=== PATIENT | male | born 1990 | race Two or more races ===

== ENCOUNTER 2024-12-29 19:33 | Emergency (ER) | payer SELFPAY ==
[2024-12-29 19:36] VITALS: BP 146/87; PULSE 88; RESP 18; TEMP 36.8; O2SAT 97
--- NOTE | 2024-12-29 20:13 | EDNOTE_ITS ---
ED General RME/HPI General Chief complaint: Medical Clearance Stated complaint: MEDICAL CLEARANCE Time Seen by Provider: 12/29/24 20:15 Arrival date/time: 12/29/24 19:33 RME / HPI RME / HPI narrative: Dr. Jones?s Main ED Evaluation: 34yo male brought in from the long term presents to the ED for a chief complaint of right pinky pain. Patient states he fell, reporting his body squished and landed on his left pinky. He has since has had significant pain since, so staff brought him in for evaluation. Patient denies any head strikes or loss of consciousness. He denies any headache, neck pain, abdominal pain, chest pain or any other associated symptoms. He denies any other injuries. Patient is right hand dominant. Related Data Allergies Allergy/AdvReac Type Severity Reaction Status Date / Time No Known Allergies Allergy Verified 12/29/24 21:28 Review of Systems Review of Systems Systems Reviewed: All systems reviewed, normal except as documented ED Exam Narrative Physical exam: GENERAL APPEARANCE: AxOx4, generally well-appearing, no acute distress. HEENT: NC, AT. MMM. EOMI, clear conjunctiva, oropharynx clear. NECK: Supple without lymphadenopathy. No stiffness or restricted ROM. HEART: Normal rate and regular rhythm, normal S1/S1, no m/r/g LUNGS: CTAB, moving air well. No crackles or wheezes are heard. ABDOMEN: Soft, nontender, nondistended with good bowel sounds heard. BACK: No midline C/T/L spine pain or deformity, No CVAT, no obvious deformity. EXTREMITIES: Without cyanosis, clubbing or edema. MUSCULOSKELETAL: FROM of all major joints, no chest tenderness; palpable crepit us at the right 5th finger distal PIP and proximal MIP NEUROLOGICAL: Grossly nonfocal. Alert and oriented, moving all 4 extremities. CN not formally tested but appear grossly intact. Observed to ambulate with normal gait. Skin: Warm and dry without any rash. Course Quality Measures none Orders Category Date Time Status Splint / Immobilizer STAT Care 12/29/24 20:43 Active XR finger RT min 2V Stat Exams 12/29/24 20:14 Completed Ibuprofen Tab [Motrin Tab] Med 12/29/24 20:43 Pending 400 mg PO X1 ONE Vital Signs Vital signs: Vital Signs Temperature 98.2 F 12/29/24 19:36 Pulse Rate 88 12/29/24 19:36 Respiratory Rate 18 12/29/24 19:36 Blood Pressure 146/87 H 12/29/24 19:36 Pulse Oximetry (%) 97 12/29/24 19:36 Oxygen Delivery Method Room Air 12/29/24 19:36 Discharge Plan Plan Patient Disposition: Skilled Nursing/Court/Law Patient condition on transfer: Stable Problem List Clinical Impression: Finger fracture, right Patient/Caregiver Discharge Instructions Education Materials: First Aid: Sprains and Fractures, ED Fracture, Finger, Closed Additional Instructions: Follow-up with your healthcare provider in 2-3 days. Print Language: Croatian MDM Narrative MDM hospital course (for use when minimal MDM required): Scribe Attestation: 12/29/24 Linh Dewitt am scribing for and in the presence of Dr. Jones. Finger splint and meenakshi tape placed to the patient's right distal phalanx. Patient is stable to be discharged back to the long term. Clinical Information Provided by: patient Medical Records reviewed [facility] (Per chart review, patient has no previous ED visits or admissions to this facility.) Meds/Rx considered, not ordered None Labs/Rad/Tests considered, not ordered None Chronic Illness/Social Conditions which may negatively complicate care or outcome(s)-explain: None or not applicable Imaging Imaging interpretation: Interpreted by me Imaging Interpretation(s): Right finger x-ray nondisplaced hairline fracture to the distal proximal phalanx at the medial aspect to the joint space, no dislocation, no soft tissue swelling, according to my interpretation. Medication Administration(s) none Medication Administration History Ibuprofen (Ibuprofen Tab 400 Mg Tablet) 400 mg PO X1 ONE Stop: 12/29/24 20:44 Diagnosis Differential Diagnosis ED Complaint MDM: fracture, dislocation, contusion
--- NOTE | 2024-12-29 20:14 | XR_ITS ---
Examination: Fingers, right hand fifth digit 3 views Technique: AP, oblique, lateral views fifth digit 3 views INDICATIONS: Injured hand today with its digit pain. Exam date and time: December 29, 20242026 hours Indications findings: Ununited radial styloid process tip fracture No acute fifth digit fracture No dislocation IMPRESSION: No acute fifth digit fracture
== END 2024-12-29 21:53 ==
LOC: SERX 21:30
PROVIDERS: Emergency Provider Emergency Medicine
DX: Z02.89 Encounter for other administrative examinations (principal); S62.606A Fracture of unspecified phalanx of right little finger, initial encounter for closed fracture; W19.XXXA Unspecified fall, initial encounter
CPT/HCPCS: 73140; 99283